=== PATIENT | female | born 1965 | race Caucasian/White ===

== ENCOUNTER 2019-01-02 05:47 | Outpatient (CLI) | payer BC ==
[~2019-01-02] VITALS: Ht 162.6 cm; Wt 77.1 kg
[2019-01-02] MEDS ORDERED: PANT40TA3 PO (09:15)
== END 2019-01-02 09:23 | disposition home or self-care (01) ==
LOC: PREOP 05:47
PROVIDERS: ATTEND Specialist
DX: Z01.818 Encounter for other preprocedural examination (principal)

== ENCOUNTER 2019-01-04 07:19 | Day surgery (SDC) | payer BC ==
[~2019-01-04] VITALS: Ht 162.6 cm; Wt 77.1 kg
[~2019-01-04 07:19] MED LIST: PANT40TA3 PO
[2019-01-04 07:25] VITALS: BP 125/85
[2019-01-04] MEDS ORDERED: POVIDONE (BETADINE) OPHTH SOLN 5% 30 ML OP ONE (07:45)
[2019-01-04] MEDS ORDERED: MOXIFLOXACIN OPHTH SOLN 5 MG/ML 0.3 ML SYRINGE OP ONE (07:45)
[2019-01-04] MEDS ORDERED: LIDOCAINE PF 1% 2 ML AMP IR PRN (07:45)
[2019-01-04] MEDS ORDERED: TIMOLOL MALEATE 0.5% 5 ML (TIMOPTIC) BTL OU PRN (07:45)
[2019-01-04] MEDS: TETRACAINE 0.5% OPHTH SOLN 4 ML BTL (SINGLE DOSE ONLY) OU PRN ×4 (07:47→07:57)
[2019-01-04] MEDS: PHENYLEPHRINE 10% OPHTH (NEO-SYN) 5 ML BTL OU SCH ×3 (07:50→07:57)
[2019-01-04] MEDS: CYCLOPENTOLATE 1% (CYCLOGYL) 2 ML DROPS OP SCH ×3 (07:50→07:57)
[2019-01-04] MEDS ORDERED: MIDAZOLAM 2 MG/2 ML (VERSED) VIAL ONE (08:25)
--- OUTSIDE RECORDS SUMMARY | 2019-01-04 08:25 | XMS REPORT | Continuity of Care Document ---
Author Organization Unknown Address Unknown Allergies Active Description Code Type Severity Reaction Onset Reported/Identified Relationship to Patient Clinical Status Yes No Known Drug Allergies [id number] Drug Allergy Unknown N/A 01/02/2019 Medications There is no data. Problems There is no data. Procedures There is no data. Results There is no data. Encounters ACCT No. Visit Date/Time Discharge Status Pt. Type Provider Facility Loc./Unit Complaint [id number] 07/02/2014 11:00:33 07/02/2014 23:59:59 [facility] Outpatient Justin Domínguez [id number] 04/23/2014 15:14:18 04/23/2014 23:59:59 [facility] Outpatient Justin Domínguez [id number] 01/02/2019 05:47:00 01/02/2019 09:23:00 DIS Outpatient SUMI MENG MD Via [facility] PREOP CATARACT [id number] 01/04/2019 11:30:00 PEN Preadmit SUMI MENG MD Via [facility] CATARACT LEFT EYE
--- NOTE | 2019-01-04 08:29 | Ophthalmologist Pre-Op Note ---
Pre-Operative Progress Note H&P Reviewed The H&P was reviewed, patient examined and no changes noted. Date H&P Reviewed: January 04, 2019 Time H&P Reviewed: 08:29 Pre-Op Dx Cataract, Left Eye SUMI MENG MD January 04, 2019 08:29
--- NOTE | 2019-01-04 08:57 | Ophthalmology Operative Report ---
Cataract removal/placement IOL PREOPERATIVE DIAGNOSIS: Cataract Left Eye POSTOPERATIVE DIAGNOSIS: Cataract Left Eye PROCEDURE: Cataract removal and placement of posterior chamber implant, left eye SURGEON: Fabrizio Meng ANESTHESIA: Topical with sedation COMPLICATIONS: None ESTIMATED BLOOD LOSS: Minimal DESCRIPTION OF PROCEDURE: After proper informed consent was obtained, the patient, a 53 female, was taken to the Operating Room and the left eye was anesthetized with tetracaine. The left eye was then prepped and draped in the usual manner. A wire lid speculum was placed. A paracentesis was made at the left hand position. Preservative free lidocaine was injected into the anterior chamber followed by viscoelastic. A clear corneal incision was made in the temporal position. A capsulorrhexis was preformed and the central nuclear and cortical material were removed. The posterior capsule was polished and an Avelino 16.5 AU00T0 was placed into the capsular bag. The residual viscoelastic was aspirated and balanced saline solution was injected into the anterior chamber. Moxifloxacin was injected into the anterior chamber. The wound was checked and found to be water tight. The patient tolerated the procedure well without complications. FABRIZIO MNEG MD January 04, 2019 08:57
[2019-01-04] MEDS ORDERED: acetaZOLAMIDE ER 500 MG CAP (DIAMOX SEQUELS) PO ONE (09:00)
[2019-01-04 09:05] VITALS: BP 137/92
--- NOTE | 2019-01-04 09:14 | Anesthesia-General Post-Op ---
MAC Patient Condition Mental Status/LOC: Same as Preop Cardiovascular: Satisfactory Nausea/Vomiting: Absent Respiratory: Satisfactory Pain: Controlled Complications: Absent Post Op Complications Complications None Follow Up Care/Instructions Patient Instructions None needed. Anesthesiology Discharge Order Discharge Order Patient is doing well, no complaints, stable vital signs, no apparent adverse anesthesia problems. No complications reported per nursing. SUSAN FLEMING CRNA January 04, 2019 09:14
== END 2019-01-04 09:05 | disposition home or self-care (01) ==
LOC: SDC 07:19
PROVIDERS: ATTEND Specialist
DX: H25.12 Age-related nuclear cataract, left eye (principal); K21.9 Gastro-esophageal reflux disease without esophagitis; Z87.891 Personal history of nicotine dependence

== ENCOUNTER 2019-01-10 05:29 | Outpatient (CLI) | payer BC | END 2019-01-10 10:37 | disposition home or self-care (01) | LOC: PREOP 05:29 | PROVIDERS: ATTEND Specialist | DX: Z01.818 Encounter for other preprocedural examination (principal) ==

== ENCOUNTER 2019-01-11 10:20 | Day surgery (SDC) | payer BC ==
[~2019-01-11] VITALS: Ht 162.6 cm; Wt 77.1 kg
--- NOTE | 2019-01-11 10:26 | Ophthalmologist Pre-Op Note ---
Pre-Operative Progress Note H&P Reviewed The H&P was reviewed, patient examined and no changes noted. Date H&P Reviewed: Jan 11, 2019 Time H&P Reviewed: 10:26 Pre-Op Dx Cataract, Right Eye SUMI MENG MD Jan 11, 2019 10:26
[2019-01-11 10:27] VITALS: BP 137/89
[2019-01-11] MEDS ORDERED: POVIDONE (BETADINE) OPHTH SOLN 5% 30 ML OP ONE (10:30)
[2019-01-11] MEDS ORDERED: LIDOCAINE PF 1% 2 ML AMP IR PRN (10:30)
[2019-01-11] MEDS ORDERED: TIMOLOL MALEATE 0.5% 5 ML (TIMOPTIC) BTL OU PRN (10:30)
[2019-01-11] MEDS: TETRACAINE 0.5% OPHTH SOLN 4 ML BTL (SINGLE DOSE ONLY) OU PRN ×4 (10:30→10:53)
[2019-01-11] MEDS ORDERED: MOXIFLOXACIN OPHTH SOLN 5 MG/ML 0.3 ML SYRINGE OP ONE (10:30)
[2019-01-11] MEDS: CYCLOPENTOLATE 1% (CYCLOGYL) 2 ML DROPS OP SCH ×3 (10:41→10:53)
[2019-01-11] MEDS: PHENYLEPHRINE 10% OPHTH (NEO-SYN) 5 ML BTL OU SCH ×3 (10:41→10:53)
[2019-01-11] MEDS ORDERED: MIDAZOLAM 2 MG/2 ML (VERSED) VIAL ONE (11:13)
[2019-01-11] MEDS ORDERED: acetaZOLAMIDE ER 500 MG CAP (DIAMOX SEQUELS) PO ONE (11:30)
--- NOTE | 2019-01-11 11:32 | Ophthalmology Operative Report ---
Cataract removal/placement IOL PREOPERATIVE DIAGNOSIS: Cataract Right Eye POSTOPERATIVE DIAGNOSIS: Cataract Right Eye PROCEDURE: Cataract removal and placement of posterior chamber implant, right eye SURGEON: Fabrizio Meng ANESTHESIA: Topical with sedation COMPLICATIONS: None ESTIMATED BLOOD LOSS: Minimal DESCRIPTION OF PROCEDURE: After proper informed consent was obtained, the patient, a 53 female, was taken to the Operating Room and the right eye was anesthetized with tetracaine. The right eye was then prepped and draped in the usual manner. A wire lid speculum was placed. A paracentesis was made at the left hand position. Preservative free lidocaine was injected into the anterior chamber followed by viscoelastic. A clear corneal incision was made in the temporal position. A capsulorrhexis was preformed and the central nuclear and cortical material were removed. The posterior capsule was polished and Avelino 16.0 AU00T0 IOL was placed into the capsular bag. The residual viscoelastic was aspirated and balanced saline solution was injected into the anterior chamber. Moxifloxacin was injected into the anterior chamber. The wound was checked and found to be water tight. The patient tolerated the procedure well without complications. FABRIZIO MENG MD Jan 11, 2019 11:32
[2019-01-11 11:40] VITALS: BP 131/95
--- NOTE | 2019-01-11 12:15 | Anesthesia-General Post-Op ---
MAC Patient Condition Mental Status/LOC: Same as Preop Cardiovascular: Satisfactory Nausea/Vomiting: Absent Respiratory: Satisfactory Pain: Controlled Complications: Absent Post Op Complications Complications None Follow Up Care/Instructions Patient Instructions None needed. Anesthesiology Discharge Order Discharge Order Patient is doing well, no complaints, stable vital signs, no apparent adverse anesthesia problems. No complications reported per nursing. SUSAN FLEMING CRNA Jan 11, 2019 12:15
--- OUTSIDE RECORDS SUMMARY | 2019-01-11 13:44 | XMS REPORT | Continuity of Care Document ---
Author Organization Unknown Address Unknown Allergies Active Description Code Type Severity Reaction Onset Reported/Identified Relationship to Patient Clinical Status Yes No Known Drug Allergies [id number] Drug Allergy Unknown N/A 01/02/2019 Medications There is no data. Problems Date Dx Coded Attending Type Code Diagnosis Diagnosed By 01/02/2019 SUMI MENG MD Ot Z01.818 ENCOUNTER FOR OTHER PREPROCEDURAL EXAMIN 01/04/2019 SUMI MENG MD Ot Z01.818 ENCOUNTER FOR OTHER PREPROCEDURAL EXAMIN 01/04/2019 SUMI MENG MD Ot H25.12 AGE-RELATED NUCLEAR CATARACT, LEFT EYE 01/04/2019 SUMI MENG MD Ot K21.9 GASTRO-ESOPHAGEAL REFLUX DISEASE WITHOUT 01/04/2019 SUMI MENG MD Ot Z87.891 PERSONAL HISTORY OF NICOTINE DEPENDENCE 01/08/2019 SUMI MENG MD Ot H25.12 AGE-RELATED NUCLEAR CATARACT, LEFT EYE 01/08/2019 SUMI MENG MD Ot K21.9 GASTRO-ESOPHAGEAL REFLUX DISEASE WITHOUT 01/08/2019 SUMI MENG MD Ot Z87.891 PERSONAL HISTORY OF NICOTINE DEPENDENCE 01/08/2019 SUMI MENG MD Ot H25.12 AGE-RELATED NUCLEAR CATARACT, LEFT EYE 01/08/2019 SUMI MENG MD Ot K21.9 GASTRO-ESOPHAGEAL REFLUX DISEASE WITHOUT 01/08/2019 SUMI MENG MD Ot Z87.891 PERSONAL HISTORY OF NICOTINE DEPENDENCE Procedures There is no data. Results There is no data. Encounters ACCT No. Visit Date/Time Discharge Status Pt. Type Provider Facility Loc./Unit Complaint [id number] 07/02/2014 11:00:33 07/02/2014 23:59:59 [facility] Outpatient Justin Domínguez [id number] 04/23/2014 15:14:18 04/23/2014 23:59:59 [facility] Outpatient Justin Domínguez [id number] 01/04/2019 07:19:00 01/04/2019 09:05:00 DIS Outpatient SUMI MENG MD Via [facility] CATARACT LEFT EYE [id number] 01/02/2019 05:47:00 01/02/2019 09:23:00 DIS Outpatient SUMI MENG MD Via [facility] PREOP CATARACT [id number] 01/11/2019 12:16:00 Document Registration [id number] 01/10/2019 05:29:00 ACT Outpatient SUMI MENG MD Via [facility] PREOP CATARACT RIGHT EYE
== END 2019-01-11 11:40 | disposition home or self-care (01) ==
LOC: SDC 10:20
PROVIDERS: ATTEND Specialist
DX: H25.11 Age-related nuclear cataract, right eye (principal); K21.9 Gastro-esophageal reflux disease without esophagitis; Z87.891 Personal history of nicotine dependence